=== PATIENT | male | born 1955 | race Two or more races ===

== ENCOUNTER 2021-06-08 14:34 | Emergency (ER) | payer OTHER ==
[~2021-06-08] VITALS: Ht 182.9 cm; Wt 79.4 kg
[2021-06-08 14:55] LABS: BASOPHILS # (AUTO) 0.1 K/uL (0.0-0.2); EOSINOPHILS % (AUTO) 0.5 % (0.0-6.0); HEMATOCRIT 44 % (39-51); HEMOGLOBIN 14.7 g/dL (13.5-17.5); LYMPHOCYTES % (AUTO) 23.3 % (20.0-44.0); MEAN CORPUSCULAR HGB CONC 34 g/dl (31.0-36.0); MEAN CORPUSCULAR VOLUME 94 fL (80-96); MONOCYTES # (AUTO) 1.2 K/uL (0.1-1.30); MONOCYTES % (AUTO) 13.7 % (2.0-12.0); NEUTROPHILS # (AUTO) 5.4 K/uL (1.8-8.9); NEUTROPHILS % (AUTO) 61.5 % (43.0-81.0); PLATELET COUNT (AUTO) 211 K/uL (150-450); RED BLOOD CELL COUNT(AUTO) 4.66 MIL/uL (4.5-6.0); WHITE BLOOD COUNT (AUTO) 8.7 K/uL (4.3-11.0)
[2021-06-08] MEDS ORDERED: IV NS 0.9% 1,000 ML BAG IV ONE (15:00)
--- NOTE | 2021-06-08 15:00 | NUR ---
Pt made aware of plan of care. Compliant and cooperative
[2021-06-08 15:15] LABS: CALCIUM, SERUM 7.9 mg/dL (8.5-10.1); CREATININE 1.3 mg/dL (0.6-1.3); POTASSIUM 3.8 mmol/L (3.5-5.1)
[2021-06-08 15:35] LABS: ALBUMIN 3.8 g/dL (3.4-5.0); BILIRUBIN,DIRECT 0.1 mg/dL (0.0-0.2); BILIRUBIN,TOTAL 0.4 mg/dL (0.2-1.0); TOTAL PROTEIN, SERUM 6.3 g/dL (6.4-8.2)
--- NOTE | 2021-06-08 16:28 | NUR ---
Sleeping soundly No obvious distress. Respiration even and unlabored
[2021-06-08] MEDS ORDERED: AZIT500T PO (18:02)
--- NOTE | 2021-06-08 18:18 | NUR ---
pt states "feel a lot better. Had a good nap" Able to tolerate sips of clears and crackers. for DC Patient discharged to home in stable condition. Written and verbal after care instructions given. Patient verbalizes understanding of instruction.
[2021-06-08 18:19] VITALS: BP 100/70
== END 2021-06-08 18:20 | disposition home or self-care (01) ==
LOC: ER 14:38
DX: R55 Syncope and collapse (principal); J18.9 Pneumonia, unspecified organism
CPT/HCPCS: 36415; 71045; 80048; 80076; 82962; 83880; 84484; 85025; 93005; 99285; J7030